=== PATIENT | male | born 1940 | race Caucasian/White ===

== ENCOUNTER → 2016-11-24 | Outpatient (CLI) | payer MEDICARE, MEDICAID ==
[~2016-11-24] MED LIST: ALLOPURINOL100 MG PO; ASPIRIN 81MG TA81 MG PO; ATORVASTATIN CA40 MG PO; CARVEDILOL3.125 MG PO; EFFIENT10 MG PO; LASIX40 MG PO; NITROGLYCERIN0.4 MG SL; PREDNISONE 20MG20 MG PO; PROTONIX 40MG T40 MG PO; ROBAFEN DM473 ML PO; TRAMADOL 50MG T50 M1 PO; TYLENOL325 MG PO
--- NOTE | 2016-11-24 14:32 | RADIOLOGY REPORT PS360 ---
History and Indications: History of [place], hypertension, tobacco use family history chest pain Procedure: Patient received 0.4 mg of Lexiscan, resting heart rate was 71 resting blood pressure 116/70, with Lexiscan maximum heart rate achieved was 85 beats prominent than 85% of the maximum] heart rate and the blood pressure was 126/45. With Lexiscan patient complained of abdominal pain nausea and vomiting. Electrocardiogram: Resting electrocardiogram showed the electronically paced rhythm premature ventricular complexes., With Lexiscan there is less than 1.5 mm the segment depression from the baseline EKG. The EKG portion of the Lexiscan is nondiagnostic secondary to baseline abnormal EKG. Cardiac stress and resting SPECT images: Cardiac stress and the suspect images were obtained using thick Myoview 10.2 mCi at rest and 30.6 mCi at stress, gated SPECT further analysis of segmental wall motion and calculation of the ejection fraction also done. Cardiac stress and the suspect show a large area of severely reduced his activity involving the inferior inferobasal, lateral and anteroseptal wall in a fixed pattern consistent with extensive area of prior myocardial scarring in addition there is a small area reversible is involving the anteroapical wall. The left ventricle is dilated with stress and rest, computer derived ejection fraction is 26% with marked hypokinesis involving the inferior, posterobasal, lateral and anteroseptal wall. Right ventricle is mildly enlarged with normal contractility. Conclusion: 1. The EKG portion of the Lexiscan is nondiagnostic. 2. The extensive prior myocardial scarring involving the inferior, inferobasal, lateral and anteroseptal wall, in addition there is a small area reversible ischemia involving the anteroapical wall. Computer derived ejection fraction is 36% with multiple segmental wall motion abnormality as described above. The left ventricle is dilated with stress and rest. 3. Abnormal Lexiscan Myoview study.
--- NOTE | 2016-11-24 15:18 | RADIOLOGY REPORT PS360 ---
PROCEDURE: 2-D M-mode and color Doppler study INDICATIONS FOR THE TEST: Chest pain COPDX Heart Murmur Tobacco SmokingX Palpitations Fatigue Syncope Edema HypertensionXDiabetes Mellitus Rheumatic Fever SOBXDOE Obesity HyperlipidemiaX Family History HD Additional History ICD CAD STENTS CM PATIENT INFORMATION HEIGHT:68 WEIGHT:210 GENDER: Male B/P:144/75 2-D/M-MODE INTERPRETATION: 2-D MEASUREMENTS OBSERVED VALUES IN CMS Right Ventricular Dimension (RVDd) 1.0 Interventricular Septum (Thickness)(IVsd) .9 Left Ventricular Internal Dimensions(LVIDd) 6.8 Left Ventricular Posterior Wall (Thickness)(LVPWd) .9 Aortic Root 3.1 Aortic Cusp Separation 1.6 Left Atrial Dimensions (LAD) 4.5 2D 1. Left atrium is mildly enlarged, left ventricle is mildly dilated, there is reduced left ventricular systolic function, visually estimated ejection fraction approximately 35%, endocardial surface of very poorly visualized, a repeat study with Definity contrast is recommended. There is marked hypokinesis involving mid to distal septum ,anteroapical and inferior wall. 2. The right atrium and right ventricle are normal size and contractility, there is catheter noted in the right ventricle which is likely an AICD lead. 3. The aortic valve is minimally thickened and calcified leaflet, display good mobility. 4. The mitral valve leaflets are minimally thickened, there is no mitral stenosis. 5. The tricuspid valve is structurally normal. 6. The pulmonic valve is not well visualized. 7. No significant pericardial effusion noted. DOPPLER INTERROGATION: Doppler interrogation of the aortic mitral and tricuspid presence of mild aortic, mild mitral and tricuspid regurgitation, tricuspid and enteric velocity insufficient for calculation of the right ventricular systolic pressure. Tissue Doppler is inconclusive. CONCLUSION: 1. Mildly enlarged left atrium, dilated left ventricle, severely reduced left ventricular systolic function, visually estimated ejection fraction approximately 35% with multiple segmental wall motion abnormality described above, a repeat study with definity contrast is recommended. 2. Mild aortic, mild mitral and tricuspid regurgitation. 3. No significant pericardial effusion noted.
== END ==
LOC: RAD 06:35
DX: I25.10 Atherosclerotic heart disease of native coronary artery without angina pectoris (principal); I11.9 Hypertensive heart disease without heart failure; I42.9 Cardiomyopathy, unspecified; E78.5 Hyperlipidemia, unspecified
CPT/HCPCS: A9502; J2785

== ENCOUNTER 2017-02-20 19:51 | Emergency (ER) | payer MEDICARE, MEDICAID ==
[~2017-02-20] VITALS: Ht 172.7 cm; Wt 88.5 kg
[2017-02-20 20:24] LABS: HEMOGLOBIN 13.6 g/dL (14.1-18.0); LYMPH # 2.4 K/mm3 (0.7-4.5); LYMPH % 38.3 % (10-50)
--- NOTE | 2017-02-20 20:51 | Emergency Room Report ---
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 N Clinical Suspician of Infection? N Mental Status: 1 - Regular (Normal Baseline) Sepsis Risk:Low Sepsis Risk Have you (or family members/close friends) recently traveled outside the [place]? N If Yes, where/when: Have you had exposure to infectious disease within the past month? N TB? Other? Specify: Source patient, RN notes reviewed, EMS, old records Exam Limitations no limitations Comment pt with fall this pm with knee pain but uncertain mech of fall- no chest pain or palpatation and pt thinks his knee gave out Cardiac Chest Pain Chest pain indicative of cardiac No Timing/Duration this evening Severity moderate ALLERGIES Coded Allergies: No Known Allergies (08/05/16) Home Medications Active Scripts Prednisone (Prednisone 20MG) 20 MG PO BID #10 TAB Prov: 03/13/16 Reported Medications Atorvastatin Calcium 40 MG PO DAILY #30 Acetaminophen (Tylenol) 650 MG PO Q8HPR NITROGLYCERIN (Nitrostat) 0.4 MG SL [id number] PRN C.P. GUAIFENESIN/DEXTROMETHORPHAN (Robafen-Dm Syrup) 10 ML PO Q4HPRN PRN COUGH TRAMADOL HCL (Tramadol) 50 MG PO TID Allopurinol 100 MG PO DAILY ASPIRIN (Aspirin) 81 MG PO DAILY Carvedilol (Carvedilol 3.125MG) 3.125 MG PO BID Prasugrel Hydrochloride (Effient) 10 MG PO DAILY Furosemide (Lasix) 40 MG PO DAILY Pantoprazole Sodium (Protonix 40MG TAB) 40 MG PO DAILY History Medical History General CAD? No Angina: No [place]: Yes Hypertension? Yes Hyperlipidemia? No CHF? Yes COPD? No Asthma? No Anemia? No Hernia? No Thyroid Problems? No CVA? No Seizures? No Diabetes? No End Stage Renal Disease? No UTI? No Stones? No GB Disease: No Nephritic Syndrome? No Asplenia? No Hepatitis? No Sickle Cell Disease? No Arthritis? No Cataracts? No Glaucoma? No MRSA? No TB? No Cancer? 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 Respiratory denies cough, denies shortness of breath, denies wheezing Cardiovascular see HPI, denies chest pain, denies palpitations, syncope Gastrointestinal denies abdominal pain, denies diarrhea, denies vomiting Genitourinary denies: dysuria, frequency, hesitancy, hematuria. Musculoskeletal denies back pain, joint pain, denies joint swelling, denies neck pain Skin denies rash Psychiatric/Neurological denies headache, denies seizure Physical Exam Vital Signs Vital Signs Date Time Temp Pulse Resp B/P Pulse O2 O2 Flow FiO2 Ox Delivery Rate 02/20 2135 67 20 146/79 98 02/20 2034 84 20 115/74 97 02/20 2033 84 115/74 02/20 2033 72 128/85 02/20 1954 98.1 82 20 143/89 98 - WBC >12,000 or <4,000 or 10% bands? 2 or more SIRS Criteria Met? B/P:/ MAP:107 Creatinine >2.0? UA output<0.5ml/kg/hr for 2 hrs? Platelet count >100,000? Lactate >2.0mmol/1? INR >1.2 or PTT > than 60 sec? Evidence of Organ Dysfunction? Provider documented clinical suspician of infection? N Sepsis Criteria Count: 1 Sepsis Risk: Low Sepsis Risk General Appearance no apparent distress Eye Exam - bilateral eye PERRL, bilateral eye EOMI Ear, Nose, Throat normal ENT inspection Neck non-tender Respiratory Status No: respiratory distress. Lung Sounds bilateral: lungs clear. 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 No Results/Orders Laboratory Tests 02/20/172054: Urine Color YELLOW, Urine Appearance CLEAR, Urine pH 6.0, Ur Specific [place] <= 1.005, Urine Protein NEGATIVE, Urine Ketones NEGATIVE, Urine Blood NEGATIVE, Urine Nitrate NEGATIVE, Urine Bilirubin NEGATIVE, Urine Urobilinogen 0.2, Ur Leukocyte Esterase NEGATIVE, Urine RBC NONE, Urine WBC NONE, Ur Squamous Epith Cells OCC, Urine Bacteria TRACE, Hyaline Casts OCC, Urine Glucose NEGATIVE 02/20/172004: Sodium 137, Potassium 4.7, Chloride 103, Carbon Dioxide 26, BUN 37 H, Creatinine 2.3 H, Estimated Creat Clear 35 L, Estimated GFR (MDRD) 28, Glucose 115 H, Calcium 8.8, Total Bilirubin 0.5, AST 17, ALT 15, Alkaline Phosphatase 97, Creatine Kinase 280, CK-MB (CK-2) Rel Index 3.5, CK and CKMB Interp 9.9 *H, Troponin I 0.04, Total Protein 7.1, Albumin 3.6, Globulin 3.5 H, Albumin/ Globulin Ratio 1.0 L, WBC 6.2, RBC 4.39 L, Hgb 13.6 L, Hct 41.0 L, MCV 93.5, RDW 13.3, Plt Count 136 L, MPV 8.5, Gran % 48.9, Gran # 3.0, Lymphocytes % 38.3 , Monocytes % 8.0, Eosinophils % 4.4, Basophils % 0.5, Lymphocytes # 2.4, Monocytes # 0.5, Eosinophils # 0.3, Basophils # 0.0, PUBS MCHC 33.2, MCH 31.0 Current Medication Orders Sig/Kal Start time Last Medication Dose Route Stop Time Status Admin Sodium Chloride 10 ML PRN PRN 02/20 2015 AC IV 02/21 2015 Orders Procedure Date/time Status PELVIS AP ONLY 02/20 2118 Active URINALYSIS/COMPLETE 02/20 2027 Complete ORTHOSTATIC B/P 02/21 2020 Active ELECTROCARDIOGRAM REQUEST 02/20 2017 Active KNEE-3 VIEWS-RT 02/20 2017 Active KNEE-3 VIEWS-LT 02/20 2017 Active CHEST(2 VIEWS-NOT PORTABLE) 02/20 2017 Active IV SALINE LOCK 02/20 2017 Active CBC WITH AUTO DIFF 02/20 2017 Complete CARDIAC ENZYMES 02/20 2017 Complete CHEM 12 PROFILE 02/20 2017 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 Rhythm XRAY/CT/US XRAY/CT/US XRAY chest, knee XR interpretation by reviewed by me Xray Results no fracture seen Departure Departure Time of Disposition 2133 Disposition DC Home or Self Care(routine) Clinical Impression Primary Impression: Syncope Qualifiers: Syncope type: unspecified Qualified Code: R55 - Syncope and collapse Secondary Impressions: Knee contusion Qualifiers: Encounter type: initial encounter Laterality: unspecified laterality Qualified Code: S80.00XA - Contusion of unspecified knee, initial encounter Pacemaker Renal insufficiency Condition STABLE Referrals Shon Mauricio MD Patient Instructions How to Prevent Falls Additional Instructions fluids and see pcp and card for follow up and recheck if any problems Discharge Counseling Counseled pt/family regarding diagnosis, test results, medications/RX, follow up needs ED Critical Care Critical Care No at 214
--- NOTE | 2017-02-20 20:51 | Emergency Room Report ---
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 N Clinical Suspician of Infection? N Mental Status: 1 - Regular (Normal Baseline) Sepsis Risk:Low Sepsis Risk Have you (or family members/close friends) recently traveled outside the [place]? N If Yes, where/when: Have you had exposure to infectious disease within the past month? N TB? Other? Specify: Source patient, RN notes reviewed, EMS, old records Exam Limitations no limitations Comment pt with fall this pm with knee pain but uncertain mech of fall- no chest pain or palpatation and pt thinks his knee gave out Cardiac Chest Pain Chest pain indicative of cardiac No Timing/Duration this evening Severity moderate ALLERGIES Coded Allergies: No Known Allergies (08/05/16) Home Medications Active Scripts Prednisone (Prednisone 20MG) 20 MG PO BID #10 TAB Prov: 03/13/16 Reported Medications Atorvastatin Calcium 40 MG PO DAILY #30 Acetaminophen (Tylenol) 650 MG PO Q8HPR NITROGLYCERIN (Nitrostat) 0.4 MG SL [id number] PRN C.P. GUAIFENESIN/DEXTROMETHORPHAN (Robafen-Dm Syrup) 10 ML PO Q4HPRN PRN COUGH TRAMADOL HCL (Tramadol) 50 MG PO TID Allopurinol 100 MG PO DAILY ASPIRIN (Aspirin) 81 MG PO DAILY Carvedilol (Carvedilol 3.125MG) 3.125 MG PO BID Prasugrel Hydrochloride (Effient) 10 MG PO DAILY Furosemide (Lasix) 40 MG PO DAILY Pantoprazole Sodium (Protonix 40MG TAB) 40 MG PO DAILY History Medical History General CAD? No Angina: No [place]: Yes Hypertension? Yes Hyperlipidemia? No CHF? Yes COPD? No Asthma? No Anemia? No Hernia? No Thyroid Problems? No CVA? No Seizures? No Diabetes? No End Stage Renal Disease? No UTI? No Stones? No GB Disease: No Nephritic Syndrome? No Asplenia? No Hepatitis? No Sickle Cell Disease? No Arthritis? No Cataracts? No Glaucoma? No MRSA? No TB? No Cancer? 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 Respiratory denies cough, denies shortness of breath, denies wheezing Cardiovascular see HPI, denies chest pain, denies palpitations, syncope Gastrointestinal denies abdominal pain, denies diarrhea, denies vomiting Genitourinary denies: dysuria, frequency, hesitancy, hematuria. Musculoskeletal denies back pain, joint pain, denies joint swelling, denies neck pain Skin denies rash Psychiatric/Neurological denies headache, denies seizure Physical Exam Vital Signs Vital Signs Date Time Temp Pulse Resp B/P Pulse O2 O2 Flow FiO2 Ox Delivery Rate 02/20 2135 67 20 146/79 98 02/20 2034 84 20 115/74 97 02/20 2033 84 115/74 02/20 2033 72 128/85 02/20 1954 98.1 82 20 143/89 98 - WBC >12,000 or <4,000 or 10% bands? 2 or more SIRS Criteria Met? B/P:/ MAP:107 Creatinine >2.0? UA output<0.5ml/kg/hr for 2 hrs? Platelet count >100,000? Lactate >2.0mmol/1? INR >1.2 or PTT > than 60 sec? Evidence of Organ Dysfunction? Provider documented clinical suspician of infection? N Sepsis Criteria Count: 1 Sepsis Risk: Low Sepsis Risk General Appearance no apparent distress Eye Exam - bilateral eye PERRL, bilateral eye EOMI Ear, Nose, Throat normal ENT inspection Neck non-tender Respiratory Status No: respiratory distress. Lung Sounds bilateral: lungs clear. 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 No Results/Orders Laboratory Tests 02/20/172054: Urine Color YELLOW, Urine Appearance CLEAR, Urine pH 6.0, Ur Specific [place] <= 1.005, Urine Protein NEGATIVE, Urine Ketones NEGATIVE, Urine Blood NEGATIVE, Urine Nitrate NEGATIVE, Urine Bilirubin NEGATIVE, Urine Urobilinogen 0.2, Ur Leukocyte Esterase NEGATIVE, Urine RBC NONE, Urine WBC NONE, Ur Squamous Epith Cells OCC, Urine Bacteria TRACE, Hyaline Casts OCC, Urine Glucose NEGATIVE 02/20/172004: Sodium 137, Potassium 4.7, Chloride 103, Carbon Dioxide 26, BUN 37 H, Creatinine 2.3 H, Estimated Creat Clear 35 L, Estimated GFR (MDRD) 28, Glucose 115 H, Calcium 8.8, Total Bilirubin 0.5, AST 17, ALT 15, Alkaline Phosphatase 97, Creatine Kinase 280, CK-MB (CK-2) Rel Index 3.5, CK and CKMB Interp 9.9 *H, Troponin I 0.04, Total Protein 7.1, Albumin 3.6, Globulin 3.5 H, Albumin/ Globulin Ratio 1.0 L, WBC 6.2, RBC 4.39 L, Hgb 13.6 L, Hct 41.0 L, MCV 93.5, RDW 13.3, Plt Count 136 L, MPV 8.5, Gran % 48.9, Gran # 3.0, Lymphocytes % 38.3 , Monocytes % 8.0, Eosinophils % 4.4, Basophils % 0.5, Lymphocytes # 2.4, Monocytes # 0.5, Eosinophils # 0.3, Basophils # 0.0, PUBS MCHC 33.2, MCH 31.0 Current Medication Orders Sig/Kal Start time Last Medication Dose Route Stop Time Status Admin Sodium Chloride 10 ML PRN PRN 02/20 2015 AC IV 02/21 2015 Orders Procedure Date/time Status PELVIS AP ONLY 02/20 2118 Active URINALYSIS/COMPLETE 02/20 2027 Complete ORTHOSTATIC B/P 02/21 2020 Active ELECTROCARDIOGRAM REQUEST 02/20 2017 Active KNEE-3 VIEWS-RT 02/20 2017 Active KNEE-3 VIEWS-LT 02/20 2017 Active CHEST(2 VIEWS-NOT PORTABLE) 02/20 2017 Active IV SALINE LOCK 02/20 2017 Active CBC WITH AUTO DIFF 02/20 2017 Complete CARDIAC ENZYMES 02/20 2017 Complete CHEM 12 PROFILE 02/20 2017 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 Rhythm Paced Rhythm XRAY/CT/US XRAY/CT/US XRAY chest, knee XR interpretation by reviewed by me Xray Results no fracture seen Departure Departure Time of Disposition 2133 Disposition DC Home or Self Care(routine) Clinical Impression Primary Impression: Syncope Qualifiers: Syncope type: unspecified Qualified Code: R55 - Syncope and collapse Secondary Impressions: Knee contusion Qualifiers: Encounter type: initial encounter Laterality: unspecified laterality Qualified Code: S80.00XA - Contusion of unspecified knee, initial encounter Pacemaker Renal insufficiency Condition STABLE Referrals Shon Mauricio MD Patient Instructions How to Prevent Falls Additional Instructions fluids and see pcp and card for follow up and recheck if any problems Discharge Counseling Counseled pt/family regarding diagnosis, test results, medications/RX, follow up needs ED Critical Care Critical Care No at 2141
[2017-02-20 21:06] LABS: URINE BILIRUBIN - DIPSTICK NEGATIVE (NEG); URINE BLOOD NEGATIVE (NEG)
[2017-02-20 21:19] LABS: URINE SQUAMOUS CELLS OCC #/hpf (OCC)
[2017-02-20 21:58] VITALS: BP 146/79
--- OUTSIDE RECORDS SUMMARY | 2017-02-20 23:00 | External Medical Summary Rpt ---
Author Author , SCOUT Organization SCOUT Address Unknown Phone [email or web address] Medical Products Care Team Providers Care Buckle Coverer Name Role Phone [employer] Unavailable Unavailable INC, [employer] ARNOLD KUSHAL, ARNOLD Unavailable Unavailable KUSHAL BEINEKE ALEYDA, BEINEKE Unavailable Unavailable ALEYDA LAUREN KRI, Unavailable Unavailable LAUREN KRI [facility], Unavailable Unavailable [facility] CHAVEZ ALL, CHAVEZ ALL Unavailable Unavailable [facility] Unavailable Unavailable SERVICE, [facility] Unavailable Unavailable SERVICE, [facility] BUDHANI IRF, BUDHANI Unavailable Unavailable IRF GIOVANNI DEL, Unavailable Unavailable GIOVANNI DEL [facility] Unavailable Unavailable CON[facility]ULTANTS O, [facility] ISHAN NEGRO, ISHAN SRUTHI Unavailable Unavailable COURTADE ALEYDA, Unavailable Unavailable COURTADE ALEYDA [facility], Unavailable Unavailable [facility], Unavailable Unavailable [facility] CHAITANYA GERSON, Unavailable Unavailable CHAITANYA GERSON DOERGER KIR, DOERGER Unavailable Unavailable KIR EISENSTEIN SHILPI, Unavailable Unavailable EISENSTEIN SHILPI [facility] Unavailable Unavailable [facility], [facility] Unavailable Unavailable [facility]NO[facility], [facility] Unavailable Unavailable TRANSPORTATION SER, [facility] FRYMAN EUG, FRYMAN Unavailable Unavailable EUG ROXANNA OSWALDO, ROXANNA Unavailable Unavailable OSWALDO [facility] Unavailable Un[facility] INC, [facility] HEEB CHR, HEEB CHR Unavailable Unavailable [facility], Unavailable Unavailable [facility] Unavailable Unavailable IM[facility]ING [facility], [facility] KUSHMAN CARISA, KUSHMAN Unavailable Unavailable [facility], [facility] DOBSON ROSA ELENA, DOBSON ROSA ELENA Unavailable Unavailable [facility] Unavailable Unavailable 9, [facility] 9 [facility], Unavailable Unavailable [facility] N VINCENZO TOMAS, VINCENZO Unavailable Unavailable [facility] LAKESHA III WAI, LAKESHA Unavailable Unavailable III WAI PETTEY JAM, PETTEY Unavailable Unavailable [facility] Unavailable Unavailable [facility], [facility] REYES ALI, RICE ALI Unavailable Unavailable ROEBKER JAM, ROEBKER Unavailable Unavailable JAM ROEBKER JAM, ROEBKER Unavailable Unavailable [facility] Unavailable Un[facility], [facility] Unavailable Unavailable [facility], [facility] MORIN GUR, MORIN Unavailable Unavailable GUR BRAYDEN, BRAYDEN Unavailable Unavailable BRAYDEN MAT, Unavailable Unavailable BRAYDEN MAT KEN, Unavailable Unavailable [facility]EN [facility], Unavailable Unavailable [facility] Unavailable Unavailable MANAGER ADMINISTRATIVE ST, [facility] MANAGER ADMINISTRATIVE ST [facility] Unavailable Unavailable [facility]ICIANS, [facility] BRANDI ELIAS, BRANDI Unavailable Unavailable ELIAS VEENA BAR, VEENA BAR Unavailable Unavailable Purpose Continuity of Care Document - 04-20-2013 through 2016 Problems Code Diagnosis DOS Provider Status 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 I5020 UNSPECIFIED 11-04-2016 [facility] SYSTOLIC PHYSICIANS CONGESTIVE GROUP HEART FAILURE [id number] PRESENCE 11-04-2016 [facility] AUTO PHYSICIANS IMPLANTABLE GROUP CARDIAC DEFIBRILLAT OR I10 ESSENTIAL 04-13-2016 [facility] PRIMARY PHYSICIANS HYPERTENSIO GROUP N M1990 UNSPECIFIED 04-13-2016 [facility] PHYSICIANS OSTEOARTHRI GROUP TIS UNSPECIFIED SITE M545 LOW BACK 04-13-2016 [facility] PAIN PHYSICIANS GROUP N189 CHRONIC 04-13-2016 [facility] KIDNEY PHYSICIANS DISEASE GROUP UNSPECIFIED [id number] EFFUSION 03-13-2016 [place] [facility] Q44850 PAIN IN 03-13-2016 [place] RIGHT [facility] W58347 PAIN IN 03-13-2016 [place] RIGHT LOWER MEDICAL LEG IMAGING ASS [id number] SPRAIN 03-13-2016 [facility]PEC[facility]IED [facility] SITE RT INC KNEE INITIAL ENCNTR V4747OQ UNS INJURY 03-13-2016 [place] RT LOWER MEDICAL LEG INITIAL IMAGING ASS ENCOUNTER M1120 OTHER 12-31-2015 [facility] CHONDROCALC PHYSICIANS INOSIS GROUP UNSPECIFIED SITE M1712 UNILATERAL 12-31-2015 [facility] PRIMARY PHYSICIANS OSTEOARTHRI GROUP TIS LEFT KNEE F36097 PAIN IN 12-25-2015 [facility] LEFT HIP PHYSICIANS GROUP M1612 UNILATERAL 11-20-2015 [facility] PRIMARY PHYSICIANS OSTEOARTHRI GROUP TIS LEFT HIP M23532 PAIN IN 10-28-2015 [place] LEFT [facility] A09331 SPONDYLOSIS 10-28-2015 [place] W/O MEDICAL MYELOPATH/R IMAGING ASS ADICULOPATH Y LUMB RGN 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 E663 OVERWEIGHT 10-27-2015 [facility] R946 ABNORMAL 10-27-2015 [facility] RESULTS OF PHYSICIANS THYROID GROUP FUNCTION STUDIES I119 HYPERTENSIV 07-21-2015 [facility] E HEART [facility] DISEASE INC WITHOUT HEART FAILURE 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 I509 HEART 07-21-2015 [facility] FAILURE [facility] UNSPECIFIED INC N183 CHRONIC 07-21-2015 [facility] KIDNEY [facility] DISEASE INC STAGE 3 MODERATE E785 HYPERLIPIDE 06-23-2015 [facility] JOSE [facility] UNSPECIFIED INC R0989 OT SPEC SX 05-12-2015 [facility] & SIGNS [facility] INVLV THE INC CIRC & RESP SYS 10047 NONSPEC 02-26-2015 [facility] RE[facility] TUBERCULIN DIAGNOSTIC SKIN TEST SE W/O ACTIVE TB 2724 OTHER AND 01-20-2015 [facility]NSPECIFIED [facility] INC HYPERLIPIDE JOSE 84118 COR 01-20-2015 [facility]LERO [facility] UNSPEC INC TYPE VESSEL COWLITZ/DERIAN T 4254 OTHER 01-20-2015 [facility] PRIMARY [facility] CARDIOMYOPA INC BOBBI 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[facility] IN SITU INC 98888 11-27-2014 [facility] TRANSPORTAT ION SER V4502 AUTOMATIC 11-27-2014 [facility] IMPLANTABLE [facility] CARDIAC INC DEFIBRILLAT OR SITU 44132 NAUSEA WITH 10-31-2014 [facility] SERVICE 61818 ABDOMINAL 10-31-2014 [place] PAIN, MEDICAL GENERALIZED IM[facility]ING ASS 02752 ABDOMINAL 10-31-2014 [facility] PAIN OTHER AMBULANCE SPECIFIED SERVICE SITE V6700 FOLLOW-UP 10-31-2014 [place] EXAMINATION MEDICAL FOLLOWING IMAGING ASS UNSPEC SURGERY 4019 UNSPECIFIED 10-16-2014 [facility] ESSENTIAL [facility] HYPERTENSIO INC N 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-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 CONSULTANTS THY O 4280 CONGESTIVE 10-16-2014 [facility] HEART LAR FAILURE CONSULTANTS UNSPECIFIED O 7859 OTHER 10-16-2014 [facility] SYMPTOMS LAR INVOLVING CONSULTANTS CARDI[facility] O LAR SYSTEM V1259 PERS HX, 10-16-2014 [facility] OTHER [facility] DISEASES OF INC CIRCULATORY SYSTEM 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 CONSULTANTS N O 496 CHRONIC 10-09-2014 [facility] AIRWAY LAR OBSTRUCTION CONSULTANTS NEC O 4010 ESSENTIAL 10-07-2014 [facility] HYPERTENSIO LAR N, [place] [address] HTN CHRN 10-07-2014 [facility] KID DZ [facility] MALIG CHRN INC KID DZ STAGE I-IV/UNS 4111 INTERMEDIAT 10-07-2014 [facility] E CORONARY LAR [place]DROME [facility]S O 75945 CORONARY 10-07-2014 [facility]OSCLER [facility] OSIS COWLITZ INC CORONARY ARTERY 4142 CHRONIC 10-07-2014 [facility] TOTAL [facility] OCCLUSION INC OF CORONARY ARTERY 74124 UNSPECIFIED 10-07-2014 [facility] SYSTOLIC [facility] HEART INC FAILURE 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 5859 CHRONIC 10-07-2014 [facility] KIDNEY [facility] DISEASE INC UNSPECIFIED 412 OLD 09-30-2014 [facility] MYOCARDIAL LAR INFARCTION CONSULTANTS O 98347 OTHER 09-30-2014 [facility] DYSPNEA AND LAR CONSULTANTS RESPIRATORY O ABNORMALITI ES 4139 OTHER AND 09-24-2014 [facility] UNSPECIFIED LAR [place] [address] SHORTNESS 09-24-2014 [facility] 13249 CHEST PAIN 09-24-2014 [facility] UNSPECIFIED SERV FOUNDATION 08104 OSTEOARTHRO 08-13-2014 MAX [facility]iser INVLV MX SITES BUT NOT SPEC GEN 7295 PAIN IN 05-14-2014 [facility] TISSUES OF OF [facility] LIMB 87866 SPRAIN AND 05-14-2014 ST STRAIN OF [facility] UNSPECIFIED MED CTR SITE OF HAND 9599 INJURY 05-14-2014 [facility] OTHER AND ASSOCIATES UNSPECIFIED OF [facility] UNSPECIFIED SITE 7213 LUMBOSACRAL 03-23-2014 K[facility] MARIANELA SPONDYLOSIS WITHOUT MYELOPATHY V714 OBSERVATION 03-23-2014 [facility] BEAR FOLLOWING OTHER ACCIDENT 2767 HYPERPOTASS 08-08-2013 ST SWETA [facility] 3970 DISEASES OF 08-08-2013 ST TRICUSPID [facility] CTR MANAGER ADMINISTRATIVE [address] [address]75 HTN CKD UNS 08-08-2013 ST W/CKD [facility] STAGE I MED CTR MANAGER ADMINISTRATIVE THRU STAGE ST IV/UNS 92007 ENDOCARDITI 08-08-2013 ST S VALVE [facility] UNSPECIFIED PHYSICIANS UNSPECIFIED CAUSE 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 [facility] MANAGER ADMINISTRATIVE [place] [address] [address] ACUTE ON 08-08-2013 ST CHRONIC [facility] SYSTOLIC MED CTR MANAGER ADMINISTRATIVE HEART ST FAILURE 89144 MUSCLE 08-08-2013 [facility] WEAKNESS AMBULANCE (GENERALIZE D) V7189 OBSERVATION 08-08-2013 ST OTHER [facility] SPECIFIED PHYSICIANS SUSPECTED CONDITIONS 2859 UNSPECIFIED 05-30-2013 ST ANEMIA [facility] MANAGER ADMINISTRATIVE ST 486 PNEUMONIA, 05-04-2013 ST ORGANISM [facility] UNSPECIFIED PHYSICIANS 5119 UNSPECIFIED 05-04-2013 ST PLEURAL [facility] EFFUSION PHYSICIANS 5939 UNSPECIFIED 05-04-2013 ST DISORDER [facility] OF KIDNEY PHYSICIANS AND URETER 7823 EDEMA 05-04-2013 [facility] 14135 OTHER SPEC 05-03-2013 ST FORMS OF [facility] EFFUSION PHYSICIANS EXCEPT TUBERCULOUS 2762 ACIDOSIS 05-02-2013 [facility] MANAGER ADMINISTRATIVE ST 5180 PULMONARY 05-02-2013 ST COLLAPSE [facility] MANAGER ADMINISTRATIVE ST 5849 ACUTE 05-02-2013 KIDNEY [facility] FAILURE MED CTR MANAGER ADMINISTRATIVE UNSPECIFIED ST 7906 OTHER 04-25-2013 ABNORMAL [facility] BLOOD PHYSICIANS CHEMISTRY V1581 PERS HX 04-25-2013 ST NONCOMPLIAN [facility] CE W/MED TX PHYSICIANS PRS HAZARDS HLTH V600 LACK OF 04-25-2013 ST HOUSING [facility] 32607 UNSPECIFIED 04-22-2013 ST [facility] ARTHROPATHY PHYSICIANS SITE UNSPECIFIED 5853 CHRONIC 04-20-2013 KIDNEY [facility] DISEASE MED CTR MANAGER ADMINISTRATIVE STAGE III ST (MODERATE) 86769 PAIN IN 04-20-2013 JOINT, [facility] ANKLE AND MED CTR MANAGER ADMINISTRATIVE [place]OT [address] [address] SWELLING OF 04-20-2013 [place] [facility] FIRE DEPT Medications Na ND Rx Da Fi Fi Am Da Di Ph RX Ph St me C No te ll ll ou ys ag ar # ys at rm s nt no ma ic us Or Da si cy ia de te s n re d 63 03 04 0 30 30 ME 11 AR Ac PI 73 -2 -1 0. D 18 NO ti RI 90 7- 4- 00 CA 02 LD ve N 43 20 20 0 RE 74 81 40 15 15 RI 1 PH CH MG AR AR MA D CH CY W EW AB LL LE C TA BL ET FU 50 11 11 3 [address] Ac RO 74 -2 -2 0. AN 82 AY ti SE 20 7- 7- 00 K' 70 NE ve WY 10 20 20 0 S 7 DE 51 13 13 PH CH 0 AR ER 40 MA YL CY MG TA BL ET AN 24 11 11 3 15 25 BL 66 SW Ac TA 38 -2 -2 00 AN 82 AY ti CI 50 7- 7- .0 K' 70 NE ve D 47 20 20 00 S 8 50 84 13 13 PH CH 0 7 AR ER MG MA YL CY CH EW AB LE TA BL ET CA 68 11 11 3 60 [address] Ac RV 38 -2 -2 0. AN 82 AY ti ED 20 7- 7- 00 K' 70 NE ve [place] 09 20 20 0 S 6 OL 20 13 13 PH CH 5 AR ER 3. MA YL 12 CY 5 MG TA BL ET AT 60 11 11 3 30 [address] Ac OR 50 -2 -2 0. AN 82 AY ti VA 52 7- 7- 00 K' [address] 57 20 20 0 S 5 AT 90 13 13 PH CH IN 9 AR ER MA YL 20 CY MG TA BL ET Procedures Procedure DOS Code Location Performer Comment MYOCARDIA 83477 [facility] SRIVASTAV L SPECT 7 PHYSICIAN A MULTIPLE S GROUP STUDIES INTERROGA 87223 [facility] TION EVAL 7 PHYSICIAN REMOTE S GROUP </30 D CV MNTR SYS PRGRMG 22554 [facility] EVAL 7 PHYSICIAN IMPLANTAB S GROUP LE IN PERSON MULTI LEAD DFB PRGRMG 91026 [facility] EVAL 7 PHYSICIAN IMPLANTAB S GROUP LE IN PERSON MULTI LEAD DFB INTERROGA 66479 [facility] TION EVAL 7 PHYSICIAN REMOTE S GROUP </30 D CV MNTR SYS PRGRMG 45286 [facility] EVAL 6 PHYSICIAN MAT IMPLANTAB S GROUP LE IN PERSON MULTI LEAD DFB INTERROGA 87486 [facility] TION EVAL 6 PHYSICIAN MAT REMOTE S GROUP </30 D CV MNTR SYS RADIOLOGI 92543 [place] CHAVEZ ALL C 6 MEDICAL EXAMINATI IMAGING ON TIBIA ASS & FIBULA 2 VIEWS RADIOLOGI 13332 [place] CHAVEZ ALL C 6 MEDICAL EXAMINATI IMAGING ON KNEE ASS 1/2 VIEWS CRTCHS E0114 [facility] UNDARM 6 TECHNOLOG TECHNOLOG OTH THAN IES INC IES INC WOOD PAIR PAD TIP&HNDGR IP INTERROGA 64225 [facility] B[facility]DEN TION EVAL 6 PHYSICIAN MAT REMOTE S GROUP </30 D CV MNTR SYS PRGRMG 77315 [facility] B[facility]DEN EVAL 6 PHYSICIAN MAT IMPLANTAB S GROUP LE IN PERSON MULTI LEAD DFB RADIOLOGI 19466 [place] CHAVEZ ALL C 6 MEDICAL EXAMINATI IMAGING ON KNEE 3 ASS VIEWS RADEX HIP 58537 [place] CHAVEZ ALL 6 MEDICAL UNILATERA IMAGING L WITH ASS PELVIS 1 VIEW RADEX 59441 [facility] ALL SPINE 6 MEDICAL LUMBOSACR IMAGING AL 2/3 ASS VIEWS INTERROGA 92629 [facility] BRAYDEN TION EVAL 6 PHYSICIAN MAT REMOTE S GROUP </30 D CV MNTR SYS PRGRMG 73482 [facility] BRAYDEN EVAL 6 PHYSICIAN MAT IMPLANTAB S GROUP LE IN PRSN DUAL LEAD DFB ECG 81731 [facility] NUÑEZON ROUTINE 6 [facility] ECG INC INC W/LEAST 12 LDS TRCG ONLY W/O I&R ECG 52414 [facility] NUÑEZON ROUTINE 5 [facility] ECG INC INC W/LEAST 12 LDS TRCG ONLY W/O I&R ECG 58826 [facility]A ROUTINE 5 [facility] ECG INC INC W/LEAST 12 LDS TRCG ONLY W/O I&R RADIOLOGI 39915 [facility] C EXAM 5 MOBILE MOBILE CHEST 2 DIAGNOSTI DIAGNOSTI VIEWS C SE C SE FRONTAL&L ATERAL TRANS R0070 [facility] PRTBL 5 MOBILE MOBILE X-RAY DIAGNOSTI DIAGNOSTI EQP&PERS C SE C SE NESTOR/NRS NESTOR-TRIP 1 PT SET-UP Q0092 [facility] PORTABLE 5 MOBILE MOBILE X-RAY DIAGNOSTI DIAGNOSTI EQUIPMENT C SE C SE ECG 86790 [facility] DUNN ROUTINE 5 [facility] ECG INC INC W/LEAST 12 LDS TRCG ONLY W/O I&R ECG 09641 [facility] DUNN ROUTINE 5 [facility] ECG INC INC W/LEAST 12 LDS TRCG ONLY W/O I&R NONEMERG A0120 [facility] FEDERATED TRNSPRT: 5 [facility] TRANSPORT [facility] SYS SBSQ 96789 [facility] NURSING 5 [facility] FACILITY CARE/DAY E/M STABLE 10 MIN RADIOLOGI 03338 [facility] PEREZ C 5 MEDICAL ALEYDA EXAMINATI IMAGING [place] [address] [place] ANA ABDOMEN & 5 MEDICAL ALEYDA PELVIS IMAGING W/O ASS CONTRAST MATERIAL GROUND A0425 [facility] AMBULANCE PER SERVICE SERVICE STATUTE MILE AMB A0427 [facility] SERVICE 5 AMBULANCE AMBULANCE ALS SERVICE SERVICE EMERGENCY TRANSPORT LEVEL 1 ECG 58275 [facility] DUNN ROUTINE 5 [facility] ECG INC INC W/LEAST 12 LDS TRCG ONLY W/O I&R NONEMERG A0120 [facility] FEDERATED TRNSPRT: 5 [facility] TRANSPORT [facility] SYS ECG 51511 [facility] ROUTINE 5 CULAR MAT ECG CONSULTAN W/LEAST TS O 12 LDS I&[place] ONLY PRQ 59183 [facility] TRLUML 5 CULAR MAT CORONARY CONSULTAN STENT TS O W/ANGIO ONE ART/BRNCH R & L HRT 57464 [facility] CATH 5 CULAR MAT WINJX HRT CONSULTAN ART& L TS O VENTR IMG SLCTV 60629 [facility] CATH 5 CULAR MAT 1STORD CONSULTAN W/WO ART TS O PUNCT/FLU OR/S&I BINDU ECG 03957 [facility] ROUTINE 5 CULAR MAT ECG CONSULTAN W/LEAST TS O 12 LDS I&R ONLY NONEMERG A0120 [facility]ERATED FEDERATED TRNSPRT: 5 [facility]SP[facility]/OTH SYS CV STRS 89780 [facility] TST 5 CULAR MAT XERS&/OR CONSULTAN RX CONT TS O ECG I&R ONLY CV STRS 47410 [facility] TST 5 PHYSICIAN XERS&/OR S GROUP RX CONT ECG W/O I&R ECHO 39482 JASON DOBSON ROSA ELENA TTHRC R-T 5 MEDICAL 2D SERV W/WOM-MOD FOUNDATIO E COMPL N SPEC&COLR D MYOCARDIA 67697 [facility] CHAITANYA L SPECT 5 MEDICAL GERSON MULTIPLE IMAGING STUDIES ASS NONEMERG A0120 FEDERATED FEDERATED TRNSPRT: 5 [facility]SP[facility] TRANSPORT [facility]/OT SYS ECG 46501 [facility] ROUTINE 5 CULAR MAT ECG CONSULTAN W/LEAST TS O 12 LDS I&R ONLY SBSQ 27637 [facility] 5 [facility] CARE/DAY E/M STABLE 10 MIN ECG 99939 [facility] ROUTINE 5 CULAR MAT ECG CONSULTAN W/LEAST TS O 12 LDS I&R ONLY SET-UP Q0092 [facility] EXPRESS PORTABLE 5 MOBILE MOBILE X-RAY DIAGNOSTI DIAGNOSTI EQUIPMENT C SE C SE TRANS R0070 [facility] EXPRESS PRTBL 5 MOBILE MOBILE X-RAY DIAGNOSTI DIAGNOSTI EQP&PERS C SE C SE NESTOR/NRS NESTOR-TRIP 1 PT RADIOLOGI 95989 [facility] EXPRESS C EXAM 5 MOBILE MOBILE CHEST 2 DIAGNOSTI DIAGNOSTI VIEWS C SE C SE FRONTAL&L ATERAL NONEMERG A0120 LKLP CAC LKLP TRNSPRT: 5 INC [facility] 9 N [facility] AREA/OTH SYS NONEMERG A0120 LKLP CAC LKLP TRNSPRT: 4 INC [facility] 9 N [facility] AREA/OTH SYS RADEX 14847 RADIOLOGY DOERGER FINGR 4 KIR MINIMUM 2 ASSOCIATE VIEWS S OF [facility] NONEMERG A0120 LKLP CAC LKLP TRNSPRT: 4 INC [facility] REGION 9 N MTN AREA/OTH SYS RADEX 06469 ROEBKER RO[facility]KER SPINE 4 JAM JAM LUMBOSACR AL 2/3 VIEWS NONEMERG A0120 LKLP CAC LKLP TRNSPRT: 4 INC [facility] 9 N MTN AREA/OTH SYS NONEMERG A0120 LKLP CAC LKLP TRNSPRT: 4 INC [facility] 9 N MTN AREA/OTH SYS INTERROG 59143 ST BR[facility] EVAL F2F 4 [facility] GRIFFIN 1/DUAL/ML T LEADS PHYSICIAN IMPLTBL S DFB NONEMERG A0120 LKLP CAC LKLP TRNSPRT: 4 INC [facility] 9 N MTN AREA/OTH SYS NONEMERG A0120 LKLP CAC LKLP CAC TRNSPRT: 4 INC [facility] REGION 9 REGION 9 MTN AREA/OTH SYS INITIAL [address] ST [facility] INPATIENT 4 [facility] GRIFFIN CONSULT NEW/ESTAB PHYSICIAN PT 80 S MIN COLLECTIO [address] N VENOUS 3 [facility] BLOOD MED CTR MED CTR VENIPUNCT MANAGER ADMINISTRATIVE ST MANAGER ADMIN[address] URE BASIC [address] METABOLIC 3 [facility] PANEL MED CTR MED CTR CALCIUM MANAGER ADMINISTRATIVE ST [place] [address] PHOSPHORU 3 P[facility] PADMAJA S MED CTR MED CTR INORGANIC MANAGER ADMINISTRATIVE [place] [address] IRON 3 P[facility] MED CTR MED CTR MANAGER ADMINISTRATIVE ST MANAGER ADMINISTRATIVE [address] HYDROXY 3 [facility] INCLUDES MED CTR MED CTR FRACTIONS MANAGER ADMINISTRATIVE ST MANAGER [place] [address] MAGNESIUM 3 P[facility] MED CTR MED CTR MANAGER ADMINISTRATIVE ST MANAGER ADMINISTRATIVE [address] DIHYDROXY 3 [facility] INCLUDES MED CTR MED CTR MANAGER ADMINISTRATIVE ST MANAGER ADMINISTRATIVE ST FRACTIONS IF PERFORMED IRON [address] BINDING 3 PAD[facility] PADMAJA CAPACITY MED CTR MED CTR MANAGER ADMINISTRATIVE ST MANAGER ADMINISTRATIVE ST BLOOD [address] COUNT 3 [facility] COMPLETE MED CTR MED CTR AUTO&AUTO MANAGER ADMINISTRATIVE ST MANAGER ADMINISTRATIVE ST DIFRNTL WBC SBSQ 56209 [facility] 3 PAD[facility]JA TOMAS CARE/DAY 25 PHYSICIAN MINUTES S SBSQ 97930 [facility] 3 PAD[facility] WAI CARE/DAY 25 PHYSICIAN MINUTES S SBSQ 46196 [facility] 3 P[facility] WAI CARE/DAY 25 PHYSICIAN MINUTES S SBSQ 18733 [facility] 3 PAD[facility]JA TOMAS CARE/DAY 35 PHYSICIAN MINUTES S SBSQ 64201 [facility] 3 P[facility]JALALLIE [facility] CARE/DAY 25 PHYSICIAN MINUTES S SBSQ 62359 [facility] 3 [place] TOM[place] CARE/DAY 35 PHYSICIAN MINUTES S SBSQ 08007 [facility] CARE/DAY 25 PHYSICIAN MINUTES S SBSQ 19597 [facility] 3 [place] IRF CARE/DAY 25 PHYSICIAN MINUTES S SBSQ 13206 [facility] CARE/DAY 35 PHYSICIAN MINUTES S CYTP [address] [facility] 3 [facility] N SHILPI CELL MED CTR ENHANCEME NT INTERPJ XCPT C/V SBSQ 16804 [facility] 3 [facility] IRF CARE/DAY 35 PHYSICIAN MINUTES S SBSQ 93351 [facility] 3 PADMAJA DEL CARE/DAY 25 PHYSICIAN MINUTES S THORACENT [address] [facility] 3 P[facility] PADMAJA MED CTR MED CTR MANAGER ADMINISTRATIVE ST MANAGER ADMINISTRATIVE ST INITIAL 88707 [facility] 3 [place] ALEYDA CARE/DAY 50 PHYSICIAN MINUTES S INITIAL 04829 [facility] 3 [facility] CARE/DAY 70 PHYSICIAN MINUTES S ECG [address] [facility] CHR ROUTINE 3 P[facility]MAJA ECG MED CTR W/LEAST 12 LDS I&R ONLY SBSQ 13231 [facility] 3 [facility] CARE/DAY 35 PHYSICIAN MINUTES S HOSPITAL [id number] [facility] 3 [facility] MA[facility]EM[facility] PHYSICIAN T > 30 S MIN SBSQ [id number] [facility] 3 [facility] CARE/DAY 25 PHYSICIAN MINUTES S SBSQ 86313 [facility] 3 [facility] CARE/DAY 35 PHYSICIAN MINUTES S SBSQ 74985 [facility] 3 [facility] CARE/DAY 35 PHYSICIAN MINUTES S SBSQ [id number] [facility] 3 [facility] CARE/DAY 25 PHYSICIAN MINUTES S SBSQ 69549 [facility] 3 [facility] CARE/DAY 25 PHYSICIAN MINUTES S SBSQ [id number] [facility] 3 [facility] CARE/DAY 35 PHYSICIAN MINUTES S INITIAL [id number] CARE/DAY 50 PHYSICIAN MINUTES S ECG [address] [facility] ROUTINE 3 PADMAJA ECG MED CTR W/LEAST 12 LDS I&R ONLY GROUND [id number] [facility] 3 FIRE FIRE PER DEPT DEPT STATUTE MILE ECG 66937 [facility] ROUTINE 3 PADMAJA ECG MED CTR W/LEAST 12 LDS I&R ONLY AMB [id number] [facility] SERVICE 3 FIRE FIRE ALS DEPT DEPT EMERGENCY TRANSPORT LEVEL 1 Encounters Encounter Start End Date Code Location Performer Type Date OFFICE 14377 [facility] [place] OUTPATIEN 6 6 PHYSICIAN [facility]DO T VISIT S GROUP 25 MINUTES OFFICE 91518 [facility] [place] OUTPATIEN 6 6 PHYSICIAN [facility] T VISIT S [facility] 15 MINUTES [facility] T OFFICE [id number] [facility] [place] OUTPATIEN 6 6 PHYSICIAN EUG T VISIT S GROUP 25 MINUTES OFFICE 57914 [facility] [place] OUTPATI[facility] 6 6 PHYSICIAN OSWALDO T VISIT S GROUP 25 MINUTES OFFICE 27550 [facility] [place] OUTPATIEN 6 6 PHYSICIAN JAM T VISIT S GROUP 15 MINUTES OFFICE 23034 [facility] [place] OUTPATIEN 6 6 PHYSICIAN OSWALDO T VISIT S GROUP 15 MINUTES OFFICE 19309 [facility] [place] OUTPATIEN 6 6 PHYSICIAN OSWALDO T VISIT S GROUP 15 MINUTES OFFICE 71100 [facility] [place] OUTPATIEN 6 6 PHYSICIAN JAM T NEW 20 S GROUP MINUTES OFFICE [id number] [facility] [place] OUTPATIEN 6 6 PHYSICIAN OSWALDO T [facility]ISIT S GROUP 25 MINUTES [facility] 6 6 [facility] - 5 5 [facility] 5 5 [facility] 5 5 [facility] - 5 5 [facility] OFFICE 48357 [facility] 5 5 CULAR MAT T [facility]ISIT [facility]AN 15 TS O MINUTES [facility] 5 5 [facility] - 5 5 [facility] [facility], [facility] OFFICE 14403 [facility] OUTPATIEN 5 5 CULAR MAT T VISIT CONSULTAN 40 TS O MINUTES HOSPITAL [facility] - 5 5 [facility] OUTPATIEN [facility] OFFICE 44504 [facility] OUTPATIEN 5 5 CULAR MAT T VISIT CONSULTAN 15 TS O MINUTES OFFICE 86490 [facility] OUTPATIEN 5 5 CULAR MAT T NEW 60 CONSULTAN MINUTES TS O EMERGENCY 13622 [facility] 4 4 [facility] T V[facility] ST - 4 4 [facility] INPATIENT MED CTR [facility] ST - 3 3 [facility] OUTPATIEN MED CTR T [facility] [address] [facility] OUTPATI 3 3 P[facility] T VISIT 15 PHYSICIAN MINUTES S EMERGENCY 43586 [facility] DEPT 3 3 [facility] CARISA VISIT MED CTR HIGH SEVERITY& THREAT [facility] ST - 3 3 [facility] INPATIENT MED CTR [facility] ST - 3 3 [facility] INPATIENT MED CTR [facility]
--- OUTSIDE RECORDS SUMMARY | 2017-02-20 23:00 | External Medical Summary Rpt ---
Author Author , SCOUT Organization SCOUT Address Unknown Phone [email or web address] Care Team Providers Care Bed Operator Name Role Phone [employer] Unavailable Unavailable INC, [employer] ARNOLD KUSHAL, ARNOLD Unavailable Unavailable KUSHAL BEINEKE ALEYDA, BEINEKE Unavailable Unavailable ALEYDA LAUREN KRI, Unavailable Unavailable LAUREN KRI [facility], Unavailable Unavailable [facility] CHAVEZ ALL, CHAVEZ ALL Unavailable Unavailable [email or web address] Unavailable Unavailable SERVICE, [email or web address] Unavailable Unavailable SERVICE, [email or web address] BUDHANI [facility], BUDHANI Unavailable Unavailable [facility] GIOVANNI DEL, Unavailable Unavailable GIOVANNI DEL [facility] Unavailable Unavailable [facility], [facility] ISHAN NEGRO, ISHAN SRUHTI Unavailable Unavailable [facility] ALEYDA, Unavailable Unavailable [facility] [...] INC HEEB CHR, HEEB CHR Unavailable Unavailable [facility], Unavailable Unavailable [facility] Unavailable Unavailable [facility], [facility] KUSHMAN CARISA, KUSHMAN Unavailable Unavailable [facility], [facility] DOBSON ROSA ELENA, DOBSON ROSA ELENA Unavailable Unavailable [facility] Unavailable Unavailable 9, [facility] 9 [facility], Unavailable Unavailable [facility] VINCENZO TOMAS, VINCENZO Unavailable Unavailable [facility] Un[facility] LAKESHA III WAI, LAKESHA Unavailable Unavailable III WAI PETTEY JAM, PETTEY Unavailable Unavailable [facility] Unavailable Unavailable [facility], [facility] REYES ALI, RICE ALI Unavailable Unavailable ROEBKER [...] CTR [facility] Unavailable Unavailable [facility], [facility] [employer] [facility] Unavailable Unavailable [facility]ICIANS, [facility] BRANDI ELIAS, BRANDI Unavailable Unavailable ELIAS VEENA BAR, VEENA BAR Unavailable Unavailable Purpose Continuity of Care Document - 04-20-2013 through 2016 Problems Code Diagnosis DOS Provider Status [id number] [facility]D [facility] [place] 11-24-2016 [facility] 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 I5020 UNSPECIFIED 11-04-2016 [facility] SYSTOLIC PHYSICIANS CONGESTIVE GROUP HEART FAILURE [id number] PRESENCE 11-04-2016 [facility] AUTO PHYSICIANS IMPLANTABLE GROUP CARDIAC DEFIBRILLAT OR I10 ESSENTIAL 04-13-2016 [facility] PRIMARY PHYSICIANS HYPERTENSIO GROUP N M1990 UNSPECIFIED 04-13-2016 [facility] PHYSICIANS OSTEOARTHRI GROUP TIS UNSPECIFIED SITE M545 LOW BACK 04-13-2016 [facility] PAIN PHYSICIANS GROUP N189 CHRONIC 04-13-2016 [facility] KIDNEY PHYSICIANS DISEASE GROUP UNSPECIFIED B06859 EFFUSION 03-13-2016 [facility] T06934 PAIN IN 03-13-2016 [facility] K78381 PAIN IN 03-13-2016 [facility] RIGHT LOWER MEDICAL LEG IMAGING ASS F3188GK SPRAIN 03-13-2016 [facility] UNSPECIFIED [facility] SITE RT INC KNEE INITIAL ENCNTR J9003IS UNS INJURY 03-13-2016 [facility] RT LOWER MEDICAL LEG INITIAL IMAGING ASS ENCOUNTER M1120 OTHER 12-31-2015 [facility] CHONDROCALC PHYSICIANS INOSIS GROUP UNSPECIFIED SITE M1712 UNILATERAL 12-31-2015 [facility] PRIMARY PHYSICIANS OSTEOARTHRI GROUP TIS LEFT KNEE Y58489 PAIN IN 12-25-2015 [facility] LEFT HIP PHYSICIANS GROUP M1612 UNILATERAL 11-20-2015 [facility] PRIMARY PHYSICIANS OSTEOARTHRI GROUP TIS LEFT HIP E73089 PAIN IN 10-28-2015 [facility] O14733 SPONDYLOSIS 10-28-2015 [facility] W/O MEDICAL MYELOPATH/R IMAGING ASS ADICULOPATH Y LUMB RGN 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 E663 OVERWEIGHT 10-27-2015 [facility] PH[facility]ICIANS GROUP R946 ABNORMAL 10-27-2015 [facility] RESULTS OF PHYSICIANS THYROID GROUP [...] INVLV THE INC CIRC & RESP SYS 09104 NONSPEC 02-26-2015 EXPRESS REACT MOBILE TUBERCULIN DIAGNOSTIC SKIN TEST SE W/O ACTIVE TB 2724 OTHER AND 01-20-2015 [facility] UNSPECIFIED [facility] INC HYPERLIPIDE JOSE 89205 COR 01-20-2015 [facility] ATHEROSLERO [facility] UNSPEC INC TYPE VESSEL [place]/DERIAN T 4254 OTHER 01-20-2015 [facility] PRIMARY [facility] CARDIOMYOPA INC BOBBI V4501 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[facility] IN SITU INC 88029 11-27-2014 [facility] ION SER V4502 AUTOMATIC 11-27-2014 [facility] IMPLANTABLE [facility] CARDIAC INC DEFIBRILLAT OR SITU 93530 NAUSEA WITH 10-31-2014 [facility] 69652 ABDOMINAL 10-31-2014 [facility] PAIN, MEDICAL GENERALIZED IM[facility]ING ASS 62717 ABDOMINAL 10-31-2014 [facility] PA[facility] OTHER AMBULANCE SPECIFIED SERVICE SITE V6700 FOLLOW-UP 10-31-2014 [facility] EXAMINATION MEDICAL FOLLOWING IMAGING ASS UNSPEC SURGERY [...] [facility] HYPERTENSIO LAR N, [place] [address] HTN CHRN 10-07-2014 [facility] KID DZ [facility] MALIG CHRN INC KID DZ STAGE I-IV/UNS 4111 INTERMEDIAT 10-07-2014 [facility] E CORONARY [place] [address] CORONARY 10-07-2014 [facility] ATHEROSCLER [facility] OSIS [place] INC CORONARY ARTERY 4142 CHRONIC 10-07-2014 [facility] TOTAL [facility] OCCLUSION INC OF CORONARY ARTERY 65449 UNSPECIFIED 10-07-2014 [facility] SYSTOLIC [facility] HEART INC FAILURE 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 OF BREATH SERV [facility] 58623 CHEST PAIN 09-24-2014 [facility] MEDICAL UNSPECIFIED SERV FOUNDATION 97563 OSTEOARTHRO 08-13-2014 MAX Kiser INVLV MX SITES BUT NOT SPEC GEN 7295 PAIN IN 05-14-2014 [facility] TISSUES OF OF [facility] LIMB 25409 SPRAIN AND 05-14-2014 ST STRAIN OF [facility] UNSPECIFIED MED CTR SITE OF HAND 9599 INJURY 05-14-2014 [facility] OTHER AND ASSOCIATES UNSPECIFIED OF [facility] UNSPECIFIED SITE 7213 LUMBOSACRAL 03-23-2014 [facility] MARIANELA SPONDYLOSIS WITHOUT MYELOPATHY V714 OBSERVATION 03-23-2014 [facility] BEAR FOLLOWING OTHER ACCIDENT 2767 HYPERPOTASS 08-08-2013 ST SWETA [facility] 3970 DISEASES OF 08-08-2013 ST TRICUSPID [facility] VALVE MED CTR [facility] 97360 HTN CKD UNS 08-08-2013 ST W/CKD [facility] STAGE I MED CTR [facility] [employer] CHAIRMAN THRU STAGE ST IV/UNS 73488 ENDOCARDITI 08-08-2013 ST S VALVE [facility] UNSPECIFIED PHYSICIANS UNSPECIFIED CAUSE 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 [facility] [employer] [place] [place] [address] [address] ACUTE ON 08-08-2013 ST CHRONIC [facility] SYSTOLIC MED CTR [facility] [employer] [facility]AIRMAN HEART ST FAILURE 57389 MUSCLE 08-08-2013 RURAL/METRO WEAKNESS AMBULANCE (GENERALIZE D) V7189 OBSERVATION 08-08-2013 ST OTHER [facility] SPECIFIED PHYSICIANS SUSPECTED CONDITIONS 2859 UNSPECIFIED 05-30-2013 ST ANEMIA [facility] MED [facility] [employer] [facility] ST 486 PNEUMONIA, 05-04-2013 ST ORGANISM [facility] UNSPECIFIED PHYSICIANS 5119 UNSPECIFIED 05-04-2013 ST PLEURAL [facility] EFFUSION PHYSICIANS 5939 UNSPECIFIED 05-04-2013 ST DISORDER [facility] OF KIDNEY PHYSICIANS AND URETER 7823 EDEMA 05-04-2013 ST [facility] PHYSICIANS 35649 OTHER SPEC 05-03-2013 ST FORMS OF [facility] EFFUSION PHYSICIANS EXCEPT TUBERCULOUS 2762 ACIDOSIS 05-02-2013 ST [facility] 5180 PULMONARY 05-02-2013 ST COLLAPSE [facility] [employer] [facility] 5849 ACUTE 05-02-2013 KIDNEY [facility] FAILURE MED CTR [facility]AIRMAN UNSPECIFIED ST 7906 OTHER 04-25-2013 ABNORMAL [facility] BLOOD PHYSICIANS CHEMISTRY V1581 PERS HX 04-25-2013 ST NONCOMPLIAN [facility] CE W/MED TX PHYSICIANS PRS HAZARDS HLTH V600 LACK OF 04-25-2013 ST HOUSING [facility] PHYSICIANS 31551 UNSPECIFIED 04-22-2013 ST [facility] ARTHROPATHY PHYSICIANS SITE UNSPECIFIED 5853 CHRONIC 04-20-2013 KIDNEY [facility] DISEASE MED CTR [facility] [employer]AIRMAN STAGE III ST (MODERATE) 95762 PAIN IN 04-20-2013 JOINT, [facility] ANKLE AND MED CTR CO [facility]ER AND [employer] FOOT [address] [address]86 SWELLING OF 04-20-2013 [place] FIRE DEPT Medications Na ND Rx [...] 7- 7- 00 K' 70 NE ve MA 10 20 20 0 S 7 DE [...] Procedure DOS Code Location Performer Comment MYOCARDIA 81950 [facility] SRIVASTAV L SPECT 7 PHYSICIAN A MULTIPLE S GROUP STUDIES INTERROGA 69137 [facility] TION EVAL 7 PHYSICIAN REMOTE S GROUP </30 D CV MNTR SYS PRGRMG 34786 [facility] EVAL 7 PHYSICIAN IMPLANTAB S GROUP LE IN PERSON MULTI LEAD DFB PRGRMG 12600 [facility] EVAL 7 PHYSICIAN IMPLANTAB S GROUP LE IN PERSON MULTI LEAD DFB INTERROGA 52272 [facility] TION EVAL 7 PHYSICIAN REMOTE S GROUP </30 D CV MNTR SYS PRGRMG 57424 [facility] EVAL 6 PHYSICIAN MAT IMPLANTAB S GROUP LE IN PERSON MULTI LEAD DFB INTERROGA 36287 [facility] TION EVAL 6 PHYSICIAN MAT REMOTE S GROUP </30 D CV MNTR SYS RADIOLOGI 58920 [facility] CHAVEZ ALL C 6 MEDICAL EXAMINATI IMAGING ON TIBIA ASS & FIBULA 2 VIEWS RADIOLOGI 60559 [facility] CHAVEZ ALL C 6 MEDICAL EXAMINATI IMAGING ON KNEE ASS 1/2 VIEWS CRTCHS E0114 [facility]ED ADVANCED UNDARM 6 TECHNOLOG TECHNOLOG OTH THAN IES INC IES INC WOOD PAIR PAD TIP&HNDGR IP INTERROGA 93892 [facility] TION EVAL 6 PHYSICIAN MAT REMOTE S GROUP </30 D CV MNTR SYS PRGRMG 73258 [facility] B[facility] EVAL 6 PHYSICIAN MAT IMPLANTAB S GROUP LE IN PERSON MULTI LEAD DFB RADIOLOGI 80657 [facility] CAHVEZ ALL C 6 MEDICAL EXAMINATI IMAGING ON KNEE 3 ASS VIEWS RADEX HIP 75778 [facility] CHAVEZ ALL 6 MEDICAL UNILATERA IMAGING L WITH ASS PELVIS 1 VIEW RADEX 08253 [facility] ALL SPINE 6 MEDICAL LUMBOSACR IMAGING AL 2/3 ASS VIEWS INTERROGA 52740 [facility] TION EVAL 6 PHYSICIAN MAT REMOTE S GROUP </30 D CV MNTR SYS PRGRMG 78540 [facility] EVAL 6 PHYSICIAN MAT IMPLANTAB S GROUP LE IN PRSN DUAL LEAD DFB ECG 40782 [facility] NUÑEZON ROUTINE 6 MEM HOSP [facility] ECG INC INC W/LEAST 12 LDS TRCG ONLY W/O I&R ECG 28458 [facility] NUÑEZON ROUTINE 5 [facility] ECG INC INC W/LEAST 12 LDS TRCG ONLY W/O I&R ECG 95759 [facility] ROUTINE 5 [facility] ECG INC INC W/LEAST 12 LDS TRCG ONLY W/O I&R RADIOLOGI 38416 EXPRESS EXPRESS C EXAM 5 MOBILE MOBILE CHEST 2 DIAGNOSTI DIAGNOSTI VIEWS C SE C SE FRONTAL&L ATERAL TRANS R0070 EXPRESS EXPRESS PRTBL 5 MOBILE MOBILE X-RAY DIAGNOSTI DIAGNOSTI EQP&PERS C SE C SE NESTOR/NRS NESTOR-TRIP 1 PT SET-UP Q0092 [facility] EXPRESS PORTABLE 5 MOBILE MOBILE X-RAY DIAGNOSTI DIAGNOSTI EQUIPMENT C SE C SE ECG 64439 [facility] DUNN ROUTINE 5 [facility] HOSP ECG INC INC W/LEAST 12 LDS TRCG ONLY W/O I&R ECG 54899 [facility] DUNN ROUTINE 5 [facility] ECG INC INC W/LEAST 12 LDS TRCG ONLY W/O I&R NONEMERG A0120 FEDER[facility] FEDERATED TRNSPRT: 5 [facility] TRANSPORT TRANSPORT [facility] SYS SBSQ 86114 MAX [facility]ANT[facility] NURSING 5 [facility] FACILITY CARE/DAY E/M STABLE 10 MIN RADIOLOGI 57996 [facility] PEREZ C 5 MEDICAL ALEYDA EXAMINATI IMAGING [place] [address] [facility] ANA ABDOMEN & 5 MEDICAL ALEYDA PELVIS IMAGING W/O ASS CONTRAST MATERIAL GROUND A0425 [facility] PER SERVICE SERVICE STATUTE MILE AMB A0427 [facility] SERVICE 5 AMBULANCE AMBULANCE ALS SERVICE SERVICE EMERGENCY TRANSPORT LEVEL 1 ECG 73663 [facility] DUNN ROUTINE 5 [facility] HOSP ECG INC INC W/LEAST 12 LDS TRCG ONLY W/O I&R NONEMERG A0120 FEDERATED FEDERATED TRNSPRT: 5 [facility] TRANSPORT TRANSPORT [facility] SYS ECG 23872 [facility] ROUTINE 5 CULAR MAT ECG CONSULTAN W/LEAST TS O 12 LDS I&R ONLY PRQ 02632 [facility] TRLUML 5 CULAR MAT CORONARY CONSULTAN STENT TS O W/ANGIO ONE ART/BRNCH R & L HRT 74788 [facility] CATH 5 CULAR MAT WINJX HRT CONSULTAN ART& L TS O VENTR IMG SLCTV 04671 [facility] CATH 5 CULAR MAT 1STORD CONSULTAN W/WO ART TS O PUNCT/FLU OR/S&I BINDU ECG 82910 [facility] ROUTINE 5 CULAR MAT ECG CONSULTAN W/LEAST TS O 12 LDS I&R ONLY NONEMERG A0120 FEDERATED FEDERATED TRNSPRT: 5 [facility] TRANSPORT TRANSPORT [facility]/OTH SYS CV STRS 77289 [facility] TST 5 CULAR MAT XERS&/OR CONSULTAN RX CONT TS O ECG I&R ONLY CV STRS 12568 [facility] TST 5 PHYSICIAN XERS&/OR S GROUP RX CONT ECG W/O I&R ECHO 74257 JASON DOBSON ROSA ELENA TTHRC R-T 5 MEDICAL 2D SERV W/WOM-MOD FOUNDATIO E COMPL N SPEC&COLR D MYOCARDIA 12487 [facility] CHAITANYA L SPECT 5 MEDICAL GERSON MULTIPLE IMAGING STUDIES ASS NONEMERG A0120 FEDERATED FEDERATED TRNSPRT: 5 [facility] TRANSPORT TRANSPORT [facility]/OT SYS ECG 47344 [facility] ROUTINE 5 CULAR MAT ECG CONSULTAN W/LEAST TS O 12 LDS I&R ONLY SBSQ 27481 [facility] 5 [facility] FACILITY CARE/DAY E/M STABLE 10 MIN ECG 38239 [facility] ROUTINE 5 CULAR MAT ECG CONSULTAN W/LEAST TS O 12 LDS I&R ONLY SET-UP Q0092 EXPRESS EXPRESS PORTABLE 5 MOBILE MOBILE X-RAY DIAGNOSTI DIAGNOSTI EQUIPMENT C SE C SE TRANS R0070 EXPRESS EXPRESS PRTBL 5 MOBILE MOBILE X-RAY DIAGNOSTI DIAGNOSTI EQP&PERS C SE C SE NESTOR/NRS NESTOR-TRIP 1 PT RADIOLOGI 47499 EXPRESS EXPRESS C EXAM 5 MOBILE MOBILE CHEST 2 DIAGNOSTI DIAGNOSTI VIEWS C SE C SE FRONTAL&L ATERAL NONEMERG A0120 LKLP CAC LKLP TRNSPRT: 5 INC [facility] MINI-BUS REGION 9 N [facility] AREA/OTH SYS NONEMERG A0120 LKLP CAC LKLP TRNSPRT: 4 INC [facility]-BUS REGION 9 N [facility] AREA/OTH SYS RADEX 21340 RADIOLOGY DOERGER FINGR 4 KIR MINIMUM 2 ASSOCIATE VIEWS S OF [facility] NONEMERG A0120 LKLP CAC LKLP TRNSPRT: 4 INC [facility] REGION 9 N MTN AREA/OTH SYS RADEX 37646 ROEBKER ROEBKER SPINE 4 JAM JAM LUMBOSACR AL 2/3 VIEWS NONEMERG A0120 LKLP CAC LKLP TRNSPRT: 4 INC [facility] MINI-BUS REGION 9 N MTN AREA/OTH SYS NONEMERG A0120 LKLP CAC LKLP TRNSPRT: 4 INC [facility] MINI-BUS REGION 9 N MTN AREA/OTH SYS INTERROG 82994 ST BR[facility]I EVAL F2F 4 [facility] GRIFFIN 1/DUAL/ML T LEADS PHYSICIAN IMPLTBL S DFB NONEMERG A0120 LKLP CAC LKLP TRNSPRT: 4 INC [facility] MINI-BUS REGION 9 N MTN AREA/OTH SYS NONEMERG A0120 LKLP CAC LKLP CAC TRNSPRT: 4 INC [facility] REGION 9 REGION 9 MTN AREA/OTH SYS INITIAL [address] ST BR[facility]I INPATIENT 4 [facility] GRIFFIN CONSULT NEW/ESTAB PHYSICIAN PT 80 S MIN COLLECTIO [address] N VENOUS 3 [facility] BLOOD MED CTR MED CTR VENIPUNCT CO [facility]OUND[facility] CO [facility] [address] URE BASIC [address] METABOLIC 3 [facility] PANEL MED CTR MED CTR CALCIUM CO FOUND[facility]MAN ST CO FOUND[facility] [place] [address] PHOSPHORU 3 P[facility]ADMAJA S MED CTR MED CTR INORGANIC [facility] [place] [address] IRON 3 P[facility] MED CTR MED CTR CO [facility] CO [facility] [address] HYDROXY 3 [facility] INCLUDES MED CTR MED CTR FRACTIONS CO [facility]MAN ST CO F[facility] [place] [address] MAGNESIUM 3 P[facility] MED CTR MED CTR [facility]MAN ST [address] DIHYDROXY 3 [facility]JA INCLUDES MED CTR MED CTR CO F[facility] CO FOUNDER AND [facility]MAN ST FRACTIONS IF PERFORMED IRON [address] BINDING 3 PAD[facility] P[facility]JA CAPACITY MED CTR MED CTR CO F[facility] CO F[facility]ER [facility]MAN ST BLOOD [address] COUNT 3 [facility] COMPLETE MED CTR MED CTR AUTO&AUTO [facility]MAN [facility] CO FOUNDER AND CHAIRMAN ST DIFRNTL WBC SBSQ 51054 [facility] 3 [facility] TOMAS CARE/DAY 25 PHYSICIAN MINUTES S SBSQ 73797 [facility] 3 [facility] WAI CARE/DAY 25 PHYSICIAN MINUTES S SBSQ 55713 [facility] 3 [facility] WAI CARE/DAY 25 PHYSICIAN MINUTES S SBSQ 02428 [facility] 3 [facility] TOMAS CARE/DAY 35 PHYSICIAN MINUTES S SBSQ 84509 [facility] 25 PHYSICIAN MINUTES S SBSQ 46744 [facility] 3 STORY TOMAS CARE/DAY 35 PHYSICIAN MINUTES S SBSQ 52783 [facility] 3 [facility] CARE/DAY 25 PHYSICIAN MINUTES S SBSQ 47868 [facility] 3 STORY IRF CARE/DAY 25 PHYSICIAN MINUTES S SBS[address] [facility] 3 [facility] CARE/DAY 35 PHYSICIAN MINUTES S CYTP [address]1 [facility] 3 [facility] N SHILPI CELL MED CTR ENHANCEME NT INTERPJ XCPT C/V SBSQ 15594 [facility] 3 [facility] IRF CARE/DAY 35 PHYSICIAN MINUTES S SBSQ 92079 [facility] 3 P[facility]JA DEL CARE/DAY 25 PHYSICIAN MINUTES S THORACENT [address] [facility]IS 3 [facility] MED CTR MED CTR CO FOUNDER [facility]MAN [facility] CO FOUNDER [facility]AIRMAN ST INITIAL [address] [facility] 3 STORY ALEYDA CARE/DAY 50 PHYSICIAN MINUTES S INITIAL 13562 [facility] 3 [facility] CARE/DAY 70 PHYSICIAN MINUTES S ECG [address] [facility] ROUTINE 3 [facility] ECG MED CTR W/LEAST 12 LDS I&R ONLY SBSQ 40250 [facility] 3 [facility] CARE/DAY 35 PHYSICIAN MINUTES S HOSPITAL 77656 [facility] MANAGEMEN PHYSICIAN T > 30 S MIN SBSQ 31799 [facility] CARE/DAY 25 PHYSICIAN MINUTES S SBSQ 46257 [facility] CARE/DAY 35 PHYSICIAN MINUTES S SBSQ 80694 [facility] CARE/DAY 35 PHYSICIAN MINUTES S SBSQ 66740 [facility] 3 [facility] CARE/DAY 25 PHYSICIAN MINUTES S SBSQ 74583 [facility] 3 [facility] CARE/DAY 25 PHYSICIAN MINUTES S SBSQ 57143 [facility] 3 [facility] CARE/DAY 35 PHYSICIAN MINUTES S INITIAL [address] CARE/DAY 50 PHYSICIAN MINUTES S ECG 27343 [facility] ROUTINE 3 [facility] ECG MED CTR W/LEAST 12 LDS I&R ONLY GROUND A0425 [facility] 3 FIRE FIRE PER DEPT DEPT STATUTE MILE ECG 99683 [facility] ROUTINE 3 [facility] ECG MED CTR W/LEAST 12 LDS I&R ONLY AMB A0427 [facility] SERVICE 3 FIRE FIRE ALS DEPT DEPT EMERGENCY TRANSPORT LEVEL 1 Encounters Encounter Start End Date Code Location Performer Type Date OFFICE 75329 [facility] [place] OUTPATIEN 6 6 PHYSICIAN OSWALDO T VISIT S GROUP 25 MINUTES OFFICE 46272 [facility] [place] OUTPATIEN 6 6 PHYSICIAN OSWALDO T VISIT S GROUP 15 MINUTES HOSPITAL [facility] - 6 6 [facility] OUTPATIEN INC T OFFICE 87172 [facility] [place] OUTPATIEN 6 6 PHYSICIAN EUG T VISIT S GROUP 25 MINUTES OFFICE 56225 [facility] [place] OUTPATIEN 6 6 PHYSICIAN OSWALDO T VISIT S GROUP 25 MINUTES OFFICE [id number] [facility] OUTPATIEN 6 6 PHYSICIAN JAM T VISIT S GROUP 15 MINUTES OFFICE 87224 [facility] [place] [facility] 6 6 PHYSICIAN OSWALDO T VISIT S GROUP 15 MINUTES OFFICE [id number] [facility] [place] OUT[facility] 6 6 PHYSICIAN OSWALDO T VISIT S GROUP 15 MINUTES OFFICE 93877 [facility] OUTPATIEN 6 6 PHYSICIAN JAM T NEW 20 S GROUP MINUTES OFFICE 01280 [facility] [place] OUT[facility] 6 6 PHYSICIAN OSWALDO T VISIT S GROUP 25 MINUTES [facility] - 6 6 [facility] - 5 5 [facility] - 5 5 [facility] - 5 5 [facility] - 5 5 [facility] OFFICE [id number] [facility] 5 5 CULAR MAT T VISIT CONSULTAN 15 TS O MINUTES [facility] - 5 5 [facility] - 5 5 [facility] OFFICE 91419 [facility] 5 5 CULAR MAT T VISIT CONSULTAN 40 TS O MINUTES [facility] - 5 5 [facility] OFFICE 71732 [facility] 5 5 CULAR MAT T VISIT CONSULTAN 15 TS O MINUTES OFFICE 62662 [facility] 5 5 CULAR MAT T NEW 60 CONSULTAN MINUTES TS O EMERGENCY 81419 [facility] 4 [facility] - 4 4 [facility] INPATIENT MED CTR [facility] - 3 3 [facility] OUTPATIEN MED CTR T [id number] [facility] OUTPATI 3 3 [facility] T VISIT 15 PHYSICIAN MINUTES S EMERGENCY [id number] 3 3 [facility] CARISA VISIT MED CTR HIGH SEVERITY& THREAT [facility] - 3 3 [facility]PATIENT [facility] - 3 3 [facility] INPATIENT MED CTR [facility]
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
--- OUTSIDE RECORDS SUMMARY | 2017-02-20 23:02 | External Medical Summary Rpt ---
Author Author [employer], SC[employer] Organization [employer] Address Unknown Phone Unavailable
--- OUTSIDE RECORDS SUMMARY | 2017-02-20 23:02 | External Medical Summary Rpt ---
Demographics Preferred Language Maltese Marital Status Unknown Mosque Affiliation Unknown Race Unknown Ethnic Group Unknown Author Author VALERIE Address Unknown Phone Immunization No patient found.
--- OUTSIDE RECORDS SUMMARY | 2017-02-20 23:02 | External Medical Summary Rpt ---
Demographics Preferred Language Stateless Marital Status Unknown Confucianism Affiliation Unknown Race Unknown Ethnic Group Unknown Author Author VALERIE Address Unknown Phone Immunization No patient found.
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
--- NOTE | 2017-02-21 06:34 | RADIOLOGY REPORT PS360 ---
CHEST(2 VIEWS-NOT PORTABLE) HISTORY: Pain following injury SYNCOPAL EPISODE ORDERING PHYSICIAN: Charlette Pandey MD PATIENT AGE: 76 years COMPARISON: 10/31/2014 FINDINGS: There are low lung volumes. Cardiac pacemaker device is present. No evidence of CHF. Coronary artery calcification noted. Mild atelectatic changes are present in the right lung base and mild pleural thickening in the right lung base laterally. No lobar consolidation or collapse. Ankylosis of the thoracic spine. IMPRESSION: 1. Low lung volumes with atelectatic change with mild pleural thickening in the right lung base laterally 2. Cardiac pacemaker device present
--- NOTE | 2017-02-21 06:36 | RADIOLOGY REPORT PS360 ---
KNEE-3 VIEWS-LT HISTORY: Knee pain and abrasion following injury SYNCOPAL EPISODE, FELL, C/O KNEE PAIN ORDERING PHYSICIAN: Charlette Pandey MD PATIENT AGE: 76 years COMPARISON: 10/28/2015 FINDINGS: No fracture or dislocation. No lytic or blastic change. Normal mineralization. There are mild osteoarthritic changes involving all 3 compartments with chondrocalcinosis of the medial and lateral meniscus. Diffuse vascular calcification. Soft tissue thickening is noted involving the infrapatellar region IMPRESSION: 1. No acute fracture. 2. Infra patellar hematoma 3. Chondrocalcinosis with osteoarthritis
--- NOTE | 2017-02-21 06:37 | RADIOLOGY REPORT PS360 ---
KNEE-3 VIEWS-RT HISTORY: Right knee pain following injury with abrasion SYNCOPAL EPISODE ORDERING PHYSICIAN: Charlette Pandey MD PATIENT AGE: 76 years COMPARISON: None FINDINGS: No fracture or dislocation. No lytic or blastic change. Normal mineralization. There is mild chondrocalcinosis in minimal osteoarthritic change of all 3 compartments. Diffuse vascular calcification. IMPRESSION: 1. No acute fracture. 2. Chondrocalcinosis with minimal osteoarthritic change
== END 2017-02-20 21:59 | disposition home or self-care (01) ==
LOC: ER 19:51
PROVIDERS: Emergency Medicine
DX: R55 Syncope and collapse (principal); S80.01XA Contusion of right knee, initial encounter; S80.02XA Contusion of left knee, initial encounter; I10 Essential (primary) hypertension; W01.0XXA Fall on same level from slipping, tripping and stumbling without subsequent striking against object, initial encounter; Y92.009 Unspecified place in unspecified non-institutional (private) residence as the place of occurrence of the external cause

== ENCOUNTER 2017-04-21 09:16 | Day surgery (SDC) | payer MEDICARE, MEDICAID ==
[~2017-04-21] VITALS: Ht 172.7 cm; Wt 93.0 kg
[2017-04-21 10:32] LABS: LYMPH # 1.7 K/mm3 (0.7-4.5); LYMPH % 26.5 % (10-50)
[2017-04-21 10:40] LABS: HEMOGLOBIN 15.4 g/dL (14.1-18.0)
[2017-04-21 10:42] LABS: BUN 34 mg/dL (7-18); GFR (ESTIMATED) 31 ML/MIN (>60)
--- NOTE | 2017-04-21 15:36 | RADIOLOGY REPORT PS360 ---
CHEST-PORTABLE COMPARISON: PA and lateral chest 02/20/2017 HISTORY: Patient is postop no other history provided TECHNIQUE: Portable semiupright chest FINDINGS: This is a poor inspiration. There is mild generalized cardio megaly without evidence of failure. There is a hazy ill-defined opacity in right lateral chest. A minimal developing pneumonic infiltrate cannot be excluded however in view of the surgery involving repair of the pacemaker some minimal soft tissue edema could explain this finding as well. The dual chamber electrodes are again noted both in good position. IMPRESSION: Inspiration somewhat ill-defined opacity right mid and lower lung field with infiltrate versus contusion of the soft tissues of the chest wall secondary to the surgical procedure involving the pacemaker as possibilities.
[2017-04-21 16:06] VITALS: BP 126/77
--- NOTE | 2017-05-03 13:38 | Operative Note ---
AICD Date of procedure: 04/21/17 Time: 1400 Preoperative Diagnosis: Device KENDRA CHF Indication for test: See above Complications: None EBL Less than 10 ml Technique: one percent lidocaine was used to anesthetize the previous incision/scar site. A scapel was used to excise the scar and dissect into the old pocket. The old generator was removed and the pocket digitally manipulated and revised. The new generator was connected to the leads and antibiotics were used to flush the pocket and the generator was attached to the fascia with 3 silk. Monocryl was used to close the subcutaneous layer and marc to close the cutaneous layer. Pt was transferred to the post area in stable condition. Impression: Pacemaker Procedure performed: Pocket revision for biventricular pacemaker generator exchange with cardiac resynchronization/defibrillator therapy Permanent cardiac resynchronization therapy with a ICD implantation/ biventricular pacemaker Interrogation: Interrogation: Left Ventricular lead P-wave measures >5.0 mV with lead impedance of 480. P-wave impedance 480 P-wave threshold 0.75 R wave greater than 12 mV R wave impedance 640 R wave threshold 400 Pulse width 0.5 Right Ventricular Lead Impedance 460 ms Threshold 0.75 Pulse width 0.5 Mode DDDR Pacemaker model number [id number] Pacemaker serial number [id number] Atrial lead monitor number Model Medtronic 5076/52 Atrial lead serial number [id number] Ventricular lead model number Left ventricular 4296/88 Right ventricular 6947/65 Ventricular lead serial number Right ventricular serial number [id number] Left ventricular serial number [id number] HU 41 Pacing parameters: Mode DDDR Base/Max 60/120 ICD rate cutoffs VT-1 150 monitors VT-2 170 ATP X 3 at 36J VF 200 ATP w/c 36-40J Explanted generator Medtronic Model [id number] Serial [id number] Serial number: See above Plan: Routine post op care at 0836
--- NOTE | 2017-05-03 13:38 | Operative Note ---
AICD Date of procedure: 04/21/17 Time: 1400 Preoperative Diagnosis: Device KENDRA CHF Indication for test: See above Complications: None EBL Less than 10 ml Technique: one percent lidocaine was used to anesthetize the previous incision/scar site. A scapel was used to excise the scar and dissect into the old pocket. The old generator was removed and the pocket digitally manipulated and revised. The new generator was connected to the leads and antibiotics were used to flush the pocket and the generator was attached to the fascia with 3 silk. Monocryl was used to close the subcutaneous layer and marc to close the cutaneous layer. Pt was transferred to the post area in stable condition. Impression: Pacemaker Procedure performed: Pocket revision for biventricular pacemaker generator exchange with cardiac resynchronization/defibrillator therapy Permanent cardiac resynchronization therapy with a ICD implantation/ biventricular pacemaker Interrogation: Interrogation: Left Ventricular lead P-wave measures >5.0 mV with lead impedance of 480. P-wave impedance 480 P-wave threshold 0.75 R wave greater than 12 mV R wave impedance 640 R wave threshold 400 Pulse width 0.5 Right Ventricular Lead Impedance 460 ms Threshold 0.75 Pulse width 0.5 Mode DDDR Pacemaker model number [id number] Pacemaker serial number [id number] Atrial lead monitor number Model Medtronic 5076/52 Atrial lead serial number [id number] Ventricular lead model number Left ventricular 4296/88 Right ventricular 6947/65 Ventricular lead serial number Right ventricular serial number [id number] Left ventricular serial number [id number] HU 41 Pacing parameters: Mode DDDR Base/Max 60/120 ICD rate cutoffs VT-1 150 monitors VT-2 170 ATP X 3 at 36J VF 200 ATP w/c 36-40J Explanted generator Medtronic Model [id number] Serial [id number] Serial number: See above Plan: Routine post op care at 0836
== END 2017-04-21 15:47 | disposition home or self-care (01) ==
LOC: CATHLAB 09:16 → SDC 09:16
PROVIDERS: Internal Medicine
PROC: 02H63KZ Insertion of Defibrillator Lead into Right Atrium, Percutaneous Approach (ICD-10-PCS; 2017-04-21)
PROC: 02HK3KZ Insertion of Defibrillator Lead into Right Ventricle, Percutaneous Approach (ICD-10-PCS; 2017-04-21)
PROC: 0JPT0PZ Removal of Cardiac Rhythm Related Device from Trunk Subcutaneous Tissue and Fascia, Open Approach (ICD-10-PCS; 2017-04-21)
PROC: 0JH608Z Insertion of Defibrillator Generator into Chest Subcutaneous Tissue and Fascia, Open Approach (ICD-10-PCS; principal; 2017-04-21 11:00)
DX: Z45.02 Encounter for adjustment and management of automatic implantable cardiac defibrillator (principal); I50.9 Heart failure, unspecified; T82.191A Other mechanical complication of cardiac pulse generator (battery), initial encounter; I42.9 Cardiomyopathy, unspecified
CPT/HCPCS: C1882